=== PATIENT | female | born 1965 | race Caucasian/White ===

== ENCOUNTER 2018-11-21 09:15 | Outpatient (CLI) | payer OTHER ==
--- NOTE | 2018-11-21 10:03 | CT ---
CT STONE PROTOCOL: HISTORY:Left-sided flank pain, right-sided flank pain COMPARISON: 08/05/2009 DISCLAIMER: Absence of oral and IV contrast reduces the sensitivity of the exam particularly for the evaluation of solid organs and bowel. FINDINGS: The lung bases are clear. No free air or free fluid is seen in the abdomen or pelvis. No calcified ga llstones are noted. Multiple bilateral renal calculi present. There is is moderate right-sided hydroureteronephrosis seco ndary to a 3 mm calculus at the right UVJ. A punctate calculus is seen just proximal to this calculus. No calculi are seen in the left ureter or the urinary bladder. No left-sided hydroureterone phrosis is noted. Normal-appearing appendix is present. There are vascular calcifications without evidence of aneurysma l dilatation of the abdominal aorta. A small hiatal hernia is present. There are degenerative changes in spine. IMPRESSION: 1. Bilateral renal calculi 2. A 3 mm Right UVJ calculus with obstructive uropathy
== END 2018-11-21 09:16 | disposition home or self-care (01) ==
LOC: CT 09:15
PROVIDERS: ATTEND Family Medicine
DX: R10.9 Unspecified abdominal pain (principal); N20.0 Calculus of kidney; N20.1 Calculus of ureter; N13.9 Obstructive and reflux uropathy, unspecified
CPT/HCPCS: 74176

== ENCOUNTER 2019-02-20 13:04 | Outpatient (CLI) | payer OTHER ==
--- NOTE | 2019-02-20 13:30 | MMO ---
Bilateral MAMMO Bilat Screen [facility]. CLINICAL HISTORY: Patient is 53 years old and is seen for screening. The patient has no family history of breast cancer. The patient has no personal history of cancer. VIEWS: The views performed were: bilateral craniocaudal with tomosynthesis and bilateral mediolateral oblique with tomosynthesis. FILMS COMPARED: The present examination has been compared to prior imaging studies performed at [facility] on 03/12/2014, 03/17/2014 and 09/15/2015, and at [facility] on 07/18/2010. This study has been interpreted with the assistance of computer-aided detection. MAMMOGRAM FINDINGS: There are scattered fibroglandular densities. There are stable benign appearing calcifications seen in both breasts. There are no suspicious masses, suspicious calcifications, or new areas of architectural distortion. IMPRESSION: THERE IS NO MAMMOGRAPHIC EVIDENCE OF MALIGNANCY. A ROUTINE FOLLOW-UP MAMMOGRAM IN 1 YEAR IS RECOMMENDED. THE RESULTS OF THIS EXAM WERE SENT TO THE PATIENT. ACR BI-RADS Category 2 - Benign finding MAMMOGRAPHY NOTE: 1. A negative mammogram report should not delay a biopsy if a dominant of clinically suspicious mass is present. 2. Approximately 10% to 15% of breast cancers are not detected by mammography. 3. Adenosis and dense breasts may obscure an underlying neoplasm. Reported by: CM DOMINGUEZ MD Electonically Signed: [id number]
== END 2019-02-20 13:05 | disposition home or self-care (01) ==
LOC: BICMAMMO 13:04
PROVIDERS: ATTEND Family Medicine
DX: Z12.31 Encounter for screening mammogram for malignant neoplasm of breast (principal)
CPT/HCPCS: 77063; 77067

== ENCOUNTER 2022-01-15 09:55 | Outpatient (CLI) | payer BC | END 2022-01-15 09:56 | disposition home or self-care (01) | LOC: BICMAMMO 09:55 | PROVIDERS: ATTEND Obstetrics & Gynecology | DX: Z12.31 Encounter for screening mammogram for malignant neoplasm of breast (principal) | CPT/HCPCS: 77063; 77067 ==

== ENCOUNTER 2023-11-15 11:55 | Outpatient (CLI) | payer BC | END 2023-11-15 11:56 | disposition home or self-care (01) | LOC: BICMAMMO 11:55 | PROVIDERS: ATTEND Family Medicine | DX: Z12.31 Encounter for screening mammogram for malignant neoplasm of breast (principal); N63.20 Unspecified lump in the left breast, unspecified quadrant | CPT/HCPCS: 77063; 77067 ==

== ENCOUNTER 2023-11-19 14:50 | Outpatient (CLI) | payer BC | END 2023-11-19 14:51 | disposition home or self-care (01) | LOC: BICMAMMO 14:50 | PROVIDERS: ATTEND Family Medicine | DX: N64.9 Disorder of breast, unspecified (principal) | CPT/HCPCS: G0279 ==

== ENCOUNTER 2024-06-12 14:38 | Outpatient (CLI) | payer BC | END 2024-06-12 14:39 | disposition home or self-care (01) | LOC: BICMAMMO 14:38 | PROVIDERS: ATTEND Family Medicine | DX: N63.21 Unspecified lump in the left breast, upper outer quadrant (principal) | CPT/HCPCS: G0279 ==